=== PATIENT | male | born 1970 | race Caucasian/White ===

== ENCOUNTER 2017-10-20 07:54 | Day surgery (SDC) | payer OTHER ==
[~2017-10-20] VITALS: Ht 172.7 cm; Wt 83.5 kg
== END 2017-10-20 12:06 | disposition home or self-care (01) ==
LOC: MDS 07:54 → MMU 07:55 → MDS 12:06
PROVIDERS: ATTEND Internal Medicine Gastroenterology
DX: K70.31 Alcoholic cirrhosis of liver with ascites (principal); K75.9 Inflammatory liver disease, unspecified; I10 Essential (primary) hypertension; E11.9 Type 2 diabetes mellitus without complications; K21.9 Gastro-esophageal reflux disease without esophagitis; F41.9 Anxiety disorder, unspecified; F10.21 Alcohol dependence, in remission; M19.042 Primary osteoarthritis, left hand; M19.041 Primary osteoarthritis, right hand; F41.8 Other specified anxiety disorders; Z68.26 Body mass index [BMI] 26.0-26.9, adult; E66.3 Overweight; F17.210 Nicotine dependence, cigarettes, uncomplicated; Z79.899 Other long term (current) drug therapy
CPT/HCPCS: 49083; Q0092; 76705

== ENCOUNTER 2017-12-11 05:43 | Day surgery (SDC) | payer OTHER ==
[~2017-12-11] VITALS: Ht 172.7 cm; Wt 79.4 kg
[2017-12-11] MEDS ORDERED: FURO-572 PO (07:20)
[2017-12-11] MEDS ORDERED: PROP10TA28 PO (07:20)
== END 2017-12-11 09:14 | disposition home or self-care (01) ==
LOC: MDS 05:43 → MMU 06:03 → MDS 09:14
PROVIDERS: ATTEND Internal Medicine Gastroenterology
DX: K70.31 Alcoholic cirrhosis of liver with ascites (principal); F41.9 Anxiety disorder, unspecified; I10 Essential (primary) hypertension; K21.9 Gastro-esophageal reflux disease without esophagitis; F17.210 Nicotine dependence, cigarettes, uncomplicated; E11.9 Type 2 diabetes mellitus without complications; M19.042 Primary osteoarthritis, left hand; M19.041 Primary osteoarthritis, right hand; E66.3 Overweight; Z68.26 Body mass index [BMI] 26.0-26.9, adult; Z79.899 Other long term (current) drug therapy
CPT/HCPCS: 49083; 76705; Q0092

== ENCOUNTER 2017-12-25 08:18 | Day surgery (SDC) | payer OTHER ==
[~2017-12-25] VITALS: Ht 170.2 cm; Wt 75.7 kg
[~2017-12-25 08:18] MED LIST: FURO-572 PO; PROP10TA28 PO
[2017-12-25] MEDS ORDERED: LIDOCAINE MPF 1% - 5 mL VIAL 5 ML ONE (08:37)
[2017-12-25] MEDS ORDERED: ACETAMINOPHEN EXTRA STRENGTH 500 MG TAB PO SCH (09:45)
== END 2017-12-25 10:44 | disposition home or self-care (01) ==
LOC: MMU 08:18 → MDS 08:18
PROVIDERS: ATTEND Internal Medicine Gastroenterology
DX: K70.31 Alcoholic cirrhosis of liver with ascites (principal); F10.21 Alcohol dependence, in remission; I10 Essential (primary) hypertension; E11.9 Type 2 diabetes mellitus without complications; F41.9 Anxiety disorder, unspecified; K21.9 Gastro-esophageal reflux disease without esophagitis; F17.210 Nicotine dependence, cigarettes, uncomplicated; M19.042 Primary osteoarthritis, left hand; M19.041 Primary osteoarthritis, right hand; E66.3 Overweight; Z68.26 Body mass index [BMI] 26.0-26.9, adult; Z79.899 Other long term (current) drug therapy
CPT/HCPCS: 49083; 76705; J2001; Q0092

== ENCOUNTER 2018-01-08 08:52 | Day surgery (SDC) | payer OTHER ==
[~2018-01-08] VITALS: Ht 172.7 cm; Wt 75.7 kg
[2018-01-08] MEDS ORDERED: VITB1I PO (10:17)
[2018-01-08] MEDS ORDERED: SPIR25TA20 PO (10:17)
[2018-01-08] MEDS ORDERED: ACET-8386 PO (10:17)
[2018-01-08] MEDS ORDERED: FOLI1TAB90 PO (10:17)
[2018-01-08] MEDS ORDERED: PRO5 PO (10:17)
[2018-01-08] MEDS ORDERED: RANI150C PO (10:17)
[2018-01-08] MEDS ORDERED: LACT10SO1 PO (10:17)
[2018-01-08] MEDS ORDERED: CHLO10CA PO (10:17)
[2018-01-08] MEDS ORDERED: ESOM20EC PO (10:17)
[2018-01-08] MEDS ORDERED: METO-485 PO (10:17)
== END 2018-01-08 11:46 | disposition home or self-care (01) ==
LOC: MDS 08:52 → MMU 08:52 → MDS 11:46
PROVIDERS: ATTEND Internal Medicine Gastroenterology
DX: K70.31 Alcoholic cirrhosis of liver with ascites (principal); F41.9 Anxiety disorder, unspecified; I10 Essential (primary) hypertension; E11.9 Type 2 diabetes mellitus without complications; M19.042 Primary osteoarthritis, left hand; M19.041 Primary osteoarthritis, right hand; E66.3 Overweight; Z68.25 Body mass index [BMI] 25.0-25.9, adult; K21.9 Gastro-esophageal reflux disease without esophagitis; F17.210 Nicotine dependence, cigarettes, uncomplicated; F10.21 Alcohol dependence, in remission; Z79.899 Other long term (current) drug therapy
CPT/HCPCS: 49083; 76705; J2001; Q0092

== ENCOUNTER 2018-01-19 06:55 | Day surgery (SDC) | payer OTHER ==
[~2018-01-19] VITALS: Ht 172.7 cm; Wt 72.6 kg
[~2018-01-19 06:55] MED LIST changes: +ACET-8386 PO; +CHLO10CA PO; +ESOM20EC PO; +FOLI1TAB90 PO; +LACT10SO1 PO; +METO-485 PO; +PRO5 PO; +RANI150C PO; +SPIR25TA20 PO; +VITB1I PO
== END 2018-01-19 09:35 | disposition home or self-care (01) ==
LOC: MDS 06:55 → MMU 06:56 → MDS 09:35
PROVIDERS: ATTEND Internal Medicine Gastroenterology
DX: K70.31 Alcoholic cirrhosis of liver with ascites (principal); K72.90 Hepatic failure, unspecified without coma; F10.21 Alcohol dependence, in remission; I10 Essential (primary) hypertension; E11.9 Type 2 diabetes mellitus without complications; M19.042 Primary osteoarthritis, left hand; M19.041 Primary osteoarthritis, right hand; F41.9 Anxiety disorder, unspecified; K21.9 Gastro-esophageal reflux disease without esophagitis; F17.210 Nicotine dependence, cigarettes, uncomplicated; E66.3 Overweight; Z68.24 Body mass index [BMI] 24.0-24.9, adult; Z79.899 Other long term (current) drug therapy
CPT/HCPCS: 49083; 76705; Q0092

== ENCOUNTER 2018-02-12 06:14 | Day surgery (SDC) | payer OTHER ==
[~2018-02-12] VITALS: Ht 172.7 cm; Wt 74.8 kg
== END 2018-02-12 09:35 | disposition home or self-care (01) ==
LOC: MDS 06:14 → MMU 06:18 → MDS 09:35
PROVIDERS: ATTEND Internal Medicine Gastroenterology
DX: K70.31 Alcoholic cirrhosis of liver with ascites (principal); I10 Essential (primary) hypertension; F41.9 Anxiety disorder, unspecified; E11.9 Type 2 diabetes mellitus without complications; K21.9 Gastro-esophageal reflux disease without esophagitis; F10.21 Alcohol dependence, in remission; F17.210 Nicotine dependence, cigarettes, uncomplicated; M19.042 Primary osteoarthritis, left hand; M19.041 Primary osteoarthritis, right hand; L40.9 Psoriasis, unspecified; E66.3 Overweight; Z68.25 Body mass index [BMI] 25.0-25.9, adult; Z79.899 Other long term (current) drug therapy
CPT/HCPCS: 49083; J2001

== ENCOUNTER 2018-03-05 05:38 | Day surgery (SDC) | payer OTHER ==
[~2018-03-05] VITALS: Ht 172.7 cm; Wt 77.1 kg
== END 2018-03-05 09:15 | disposition home or self-care (01) ==
LOC: MDS 05:38 → MMU 06:07 → MDS 09:15
PROVIDERS: ATTEND Internal Medicine Gastroenterology
DX: K70.31 Alcoholic cirrhosis of liver with ascites (principal); Z79.899 Other long term (current) drug therapy; L40.9 Psoriasis, unspecified; R14.0 Abdominal distension (gaseous)
CPT/HCPCS: 49083; 76705; Q0092

== ENCOUNTER 2018-03-16 09:19 | Day surgery (SDC) | payer OTHER ==
[~2018-03-16] VITALS: Ht 172.7 cm; Wt 78.5 kg
[2018-03-16] MEDS ORDERED: ACETAMINOPHEN EXTRA STRENGTH 500 MG TAB PO SCH (13:00)
[2018-03-16] MEDS ORDERED: LIDOCAINE MPF 2% 100 MG/5 ML VIAL INJ ONE (13:00)
== END 2018-03-16 13:10 | disposition home or self-care (01) ==
LOC: MMU 09:19 → MOR 09:19
PROVIDERS: ATTEND Internal Medicine Gastroenterology
DX: K70.11 Alcoholic hepatitis with ascites (principal); I10 Essential (primary) hypertension; F41.9 Anxiety disorder, unspecified; K21.9 Gastro-esophageal reflux disease without esophagitis; M19.042 Primary osteoarthritis, left hand; M19.041 Primary osteoarthritis, right hand; F10.21 Alcohol dependence, in remission; F17.210 Nicotine dependence, cigarettes, uncomplicated; E11.9 Type 2 diabetes mellitus without complications; Z79.899 Other long term (current) drug therapy
CPT/HCPCS: 49083; 76705; Q0092; J2001

== ENCOUNTER 2018-04-27 06:12 | Day surgery (SDC) | payer OTHER ==
[~2018-04-27] VITALS: Ht 172.7 cm; Wt 72.6 kg
[2018-04-27] MEDS ORDERED: ACETAMINOPHEN EXTRA STRENGTH 500 MG TAB PO PRN (08:20)
== END 2018-04-27 09:00 | disposition home or self-care (01) ==
LOC: MDS 06:12 → MMU 06:15 → MDS 09:00
PROVIDERS: ATTEND Internal Medicine Gastroenterology
DX: K70.31 Alcoholic cirrhosis of liver with ascites (principal); E11.9 Type 2 diabetes mellitus without complications; F41.9 Anxiety disorder, unspecified; L40.9 Psoriasis, unspecified; K21.9 Gastro-esophageal reflux disease without esophagitis; F17.210 Nicotine dependence, cigarettes, uncomplicated; M19.042 Primary osteoarthritis, left hand; M19.041 Primary osteoarthritis, right hand; E66.3 Overweight; Z68.24 Body mass index [BMI] 24.0-24.9, adult; Z79.899 Other long term (current) drug therapy
CPT/HCPCS: 49083; 76705; Q0092

== ENCOUNTER 2018-05-25 05:52 | Day surgery (SDC) | payer OTHER ==
[~2018-05-25] VITALS: Ht 172.7 cm; Wt 68.0 kg
[2018-05-25] MEDS ORDERED: ACETAMINOPHEN EXTRA STRENGTH 500 MG TAB PO PRN (07:05)
[2018-05-25] MEDS ORDERED: LIDOCAINE MPF 1% 5mL VIAL ONE (07:05)
== END 2018-05-25 09:23 | disposition home or self-care (01) ==
LOC: MDS 05:52 → MMU 05:54 → MDS 09:23
PROVIDERS: ATTEND Internal Medicine Gastroenterology
DX: K70.11 Alcoholic hepatitis with ascites (principal); K21.9 Gastro-esophageal reflux disease without esophagitis; F41.9 Anxiety disorder, unspecified; F17.210 Nicotine dependence, cigarettes, uncomplicated; M19.042 Primary osteoarthritis, left hand; M19.041 Primary osteoarthritis, right hand; E11.9 Type 2 diabetes mellitus without complications; F10.21 Alcohol dependence, in remission; Z79.899 Other long term (current) drug therapy
CPT/HCPCS: 49083; 76705; J2001; Q0092